=== PATIENT | female | born 1965 | race Caucasian/White ===

== ENCOUNTER 2020-08-25 09:24 | Emergency (ER) | payer BC ==
[2020-08-25 09:29] VITALS: BMI 27.1
[2020-08-25] MEDS ORDERED: LIDOCAINE 5% TOPICAL PATCH TP ONE (09:36)
[2020-08-25] MEDS ORDERED: IBUPROFEN 400 MG TABLET (FP) PO ONE ×2 (09:37→09:42)
[2020-08-25] MEDS ORDERED: LIDOCAINE 5% TOPICAL PATCH ONE (09:42)
[2020-08-25 11:46] LABS: MEAN PLT VOLUME 11.5 fl (7.5-11.1)
[2020-08-25 11:47] LABS: ALBUMIN 4.1 g/dl (3.4-5.0); BILIRUBIN,TOTAL 0.9 mg/dl (0.2-1); CALCIUM 9.9 mg/dl (8.5-10); POTASSIUM 4.9 mmol/L (3.5-5.1); TOT PROT 7.5 g/dl (6.4-8.2)
[2020-08-25 11:50] LABS: BASO % 0.8 % (0-2.0); HEMATOCRIT 32.4 % (32.4-45.2); HEMOGLOBIN 11.3 GM/dl (10.7-15.3); MCH 33.3 pg (25.7-33.7); MCHC 34.8 g/dl (32.0-36.0); MEAN CELL VOLUME 95.5 fl (80-96); MONO % 5.1 % (3.8-10.2); NEUT % 85.1 % (42.8-82.8); PLATELET COUNT 234 K/MM3 (134-434); RBC 3.39 M/mm3 (3.60-5.2); RDW 12.1 % (11.6-15.6); WHITE BLOOD COUNT 13.1 K/mm3 (4.0-10.8)
[2020-08-25 14:45] VITALS: BP 101/58; PULSE 100; TEMP 98.2
[2020-08-25] MEDS ORDERED: LIDOCAINE PATCH REMOVAL MC SCH (22:00)
== END 2020-08-25 14:45 | disposition short-term general hospital (02) ==
LOC: FER 09:24
DX: J94.2 Hemothorax (principal); S22.42XA Multiple fractures of ribs, left side, initial encounter for closed fracture; S36.039A Unspecified laceration of spleen, initial encounter
CPT/HCPCS: 36415; 71101-TC-LT-FY; 71250-TC; 74177-TC; 80053; 85025; 99285-25; Q9967